=== PATIENT | male | born 1965 | race Caucasian/White ===

== ENCOUNTER 2019-04-04 11:08 | Emergency (ER) | payer BC ==
[2019-04-04] MEDS ORDERED: Ibuprofen 800 MG TAB ONE (11:41)
--- NOTE | 2019-04-04 11:55 | RAD ---
Exam:4 views right wrist HISTORY: Trauma. Pain. Hail hit wrist one month ago. Worsening pain. COMPARISON: None FINDINGS: Intercarpal and radiocarpal joint spaces are preserved. No fracture or malalignment. IMPRESSION: Unremarkable right wrist 4 views.
== END 2019-04-04 12:20 | disposition home or self-care (01) ==
LOC: MADERS 11:08
DX: S60.211A Contusion of right wrist, initial encounter (principal); Z71.6 Tobacco abuse counseling; Z79.899 Other long term (current) drug therapy; F17.210 Nicotine dependence, cigarettes, uncomplicated; F32.9 Major depressive disorder, single episode, unspecified; W20.8XXA Other cause of strike by thrown, projected or falling object, initial encounter
CPT/HCPCS: 99406

== ENCOUNTER 2023-09-05 13:14 | Emergency (ER) | payer MEDICARE ==
[2023-09-05 14:00] LABS: #Basophils 0.1 thou/uL (0.0-0.2); #Eosinphils 0.3 thou/uL (0.0-0.7); #Lymphocytes 1.9 thou/uL (1.20-3.40); #Monocytes 0.9 thou/uL (0.11-0.59); #Neutrophils 7.5 thou/uL (1.40-6.50); %Basophils 1.2 % (0.0-1.0); %Eosinophils 2.7 % (0.0-10.0); %Lymphocytes 17.2 % (21.0-51.0); %Monocytes 8.7 % (0.0-10.0); %Neutrophils 70.2 % (42.0-75.0); Hematocrit 49.8 % (42.0-52.0); Hemoglobin 15.9 g/dL (14.0-18.0); Mean Corpuscular HGB CONC 31.9 g/dL (32.0-36.0); Mean Corpuscular Hemoglobin 28.7 pg (27.0-31.0); Mean Platelet Volume 6.4 fL (7.4-10.4); Platelet Count 207 10x3/uL (130-400); RBC Distribution Width 12.4 % (11.5-14.5); Red Blood Cell (RBC) Count 5.53 mill/uL (4.70-6.10); White Blood Cell (WBC) Count 10.7 10x3/uL (4.8-10.8)
[2023-09-05 14:18] LABS: ALT (SGPT) 152 U/L (8-55); AST (SGOT) 50 U/L (5-34); Albumin 4.1 g/dL (3.5-5.0); Alkaline Phosphatase 67 U/L (40-110); Anion Gap 15 mmol/L (10-20); BUN (Urea Nitrogen) 13 mg/dL (8.4-25.7); Bilirubin, Total 0.8 mg/dL (0.2-1.2); Calc. Creatinine Clearance 0 mL/min (70-130); Calcium 9.5 mg/dL (7.8-10.44); Carbon Dioxide 24 mmol/L (22-29); Chloride 101 mmol/L (98-107); Estimated GFR 103; Globulin 2.9 g/dL (2.4-3.5); Glucose 97 mg/dL (70-105); Lipase 10 U/L (8-78); Magnesium 2.2 mg/dL (1.6-2.6); Potassium 4.4 mmol/L (3.5-5.1); Sodium 136 mmol/L (136-145)
[2023-09-05] MEDS ORDERED: Iopamidol 370 76% 100 ML VIAL ONE (14:31)
[2023-09-05] MEDS ORDERED: Ipratropium/Albuterol 3 ML NEB ONE (14:36)
[2023-09-05] MEDS ORDERED: methylPREDNISolone Sod Succ/PF 125 MG/2 ML VIAL ONE (14:41)
[2023-09-05] MEDS ORDERED: Sodium Chloride 0.9% 1,000 ML ONE (14:41)
[2023-09-05] MEDS ORDERED: Piperacillin/Tazobactam 4.5 GM VIAL ONE (14:54)
[2023-09-05] MEDS ORDERED: Sodium Chloride 0.9% 100 ML ONE (14:54)
== END 2023-09-05 15:45 | disposition home or self-care (01) ==
LOC: MADERS 13:14
DX: K57.92 Diverticulitis of intestine, part unspecified, without perforation or abscess without bleeding (principal); J44.1 Chronic obstructive pulmonary disease with (acute) exacerbation; R74.01 Elevation of levels of liver transaminase levels; I10 Essential (primary) hypertension; F17.210 Nicotine dependence, cigarettes, uncomplicated; Z79.899 Other long term (current) drug therapy
CPT/HCPCS: 74177; 80053; 83690; 83735; 85025; 96365; 96375; 99406; J2543; J2930; J3490; J7050; J7620; Q9967